=== PATIENT | female | born 1950 | race Caucasian/White ===

== ENCOUNTER 2020-08-15 09:18 | Emergency (ER) | payer MEDICARE, SELFPAY ==
[2020-08-15 09:21] VITALS: BP 121/86; PULSE 77; TEMP 36.8; O2SAT 97; BMI 30.4
[2020-08-15] MEDS: HYDROcodone Bitartrate/Apap 5/325 Tablet PO (09:29)
--- NOTE | 2020-08-15 09:29 | ED.VISSUMM ---
- ER Visit Summary Date of Service: 08/15/20 Chief Complaint: Fall History of Present Illness: The patient is a 69 F presenting after fall. Patient states she was trying to move furniture. She tripped over a bed frame and fell landing on her right shoulder. She also hit her left knee. She did not hit her head or lose consciousness. She is not on anticoagulants. Denies other complaints. Physical Examination: Vitals are stable. Patient is afebrile. Alert no acute distress. HEENT exam is unremarkable. No evidence of head trauma Neck is nontender Lungs are clear and equal bilaterally. Heart is regular rate and rhythm. Abdomen is soft nontender nondistended. Extremities diffuse right shoulder tenderness with painful range of motion, mild left anterior knee tenderness with active full range of motion. Neurovascularly intact distally. Skin is warm and dry. No focal neurologic deficit. Remainder of exam is unremarkable. Emergency Department Course and Treatment: Patient was given [place] x1. Left knee x-ray shows no fracture. Right shoulder x-ray shows nondisplaced transverse fracture of the surgical neck of the proximal humerus. Patient was given a sling. She is given a prescription for [place]. She is given Dr. Trejo on-call for orthopedics for follow-up. Advised return to the ED for worsening complaints. Disposition: Discharge home Impression: Status post fall, right proximal humerus fracture, left knee contusion This note was generated with [employer] dictation software. It may contain incorrect words, spelling, and punctuation that were not noted in review of the chart prior to signing ED Disposition - Plan for ED Patient: Disposition: Home or Assisted Living Instructions: ED Fracture Upper Extremity Prescriptions: Hydrocodone Bitart/Apap 5-325 [[place] 5MG-325MG] 1 tab PO Q6H PRN PRN 3 Days #10 tab PRN Reason: Pain Prescription Printed Referrals: Lotus Malagon MD [Primary Care Provider] - Narayan Trejo DO [STAFF PHYSICIAN] -
--- NOTE | 2020-08-15 09:32 | RAD_ITS ---
STUDY: X-RAY - RIGHT SHOULDER REASON FOR EXAM: Female, 69 years old. Pain due to fall TECHNIQUE: Tube view(s) of the shoulder. COMPARISON: None. FINDINGS: Normal glenohumeral articulation. There is hypertrophic osteoarthrosis of the acromioclavicular joint with inferior osseous spur formation. Normal acromion. Nondisplaced fracture of the surgical neck of the proximal humerus. The soft tissue structures are unremarkable. Normal visualized pulmonary apex. RAD/Shoulder min 2 Views IMPRESSION: Nondisplaced transverse fracture of the surgical neck of the proximal humerus. Electronically Signed: Chuy Mulligan, at 10:02 EST , Service support ,
--- NOTE | 2020-08-15 09:32 | RAD_ITS ---
STUDY: X-RAY - LEFT KNEE REASON FOR EXAM: Female, 69 years old. Injury, fell, pain and abrasion on patella TECHNIQUE: 4 view(s) of the knee. COMPARISON: None. FINDINGS: Normal visualized distal femur. Normal visualized proximal tibia and fibula. Normal proximal tibiofibular articulation. There is mild degenerative arthrosis of the medial femorotibial compartment. Normal lateral femorotibial compartment. Normal patellofemoral articulation. Mild prepatellar soft tissue swelling. RAD/Knee 4 or More Views IMPRESSION: Degenerative arthrosis. Prepatellar soft tissues Electronically Signed: Chuy Mulligan, at 10:02 EST , Service support ,
--- NOTE | 2020-08-15 10:14 | ED.DEP ---
ED Disposition - Plan for ED Patient: Instructions: ED Fracture Upper Extremity Prescriptions: Hydrocodone Bitart/Apap 5-325 [[place] 5MG-325MG] 1 tablet PO Q6H PRN PRN 3 Days #10 tablet PRN Reason: Pain Referrals: Lotus Malagon MD [Primary Care Provider] - Narayan Trejo DO [STAFF PHYSICIAN] -
[2020-08-15 10:38] VITALS: BP 151/64
== END 2020-08-15 10:40 | disposition home or self-care (01) ==
PROVIDERS: Emergency Provider Emergency Medicine; PCP Internal Medicine
DX: S42.214A Unspecified nondisplaced fracture of surgical neck of right humerus, initial encounter for closed fracture (principal); S80.02XA Contusion of left knee, initial encounter; E11.9 Type 2 diabetes mellitus without complications; Z79.84 Long term (current) use of oral hypoglycemic drugs; W18.09XA Striking against other object with subsequent fall, initial encounter; Y93.89 Activity, other specified; Y92.003 Bedroom of unspecified non-institutional (private) residence as the place of occurrence of the external cause; Y99.8 Other external cause status
CPT/HCPCS: 73030; 73564; 99285